=== PATIENT | female | born 1970 | race Caucasian/White ===

== ENCOUNTER 2018-03-02 18:06 | Emergency (ER) | payer BC ==
[2018-03-02] MEDS ORDERED: Ondansetron INJ* 2 MG/ML VIAL IV ONE (18:42)
[2018-03-02] MEDS ORDERED: NS 0.9% 1000 ML* 1,000 ML IV ONE (18:42)
[2018-03-02 19:07] LABS: ABS Basophils 0 10^3/ul (0-0.2); ABS Eosinophils 0.8 10^3/ul (0-0.6); ABS Lymphocytes 1.4 10^3/ul (1.0-4.8); ABS Monocytes 0.6 10^3/ul (0-0.8); ABS Neutrophils 10.3 10^3/ul (1.5-7.7); ABS Nucleated RBC 0 10^3/ul; Eosinophil % 5.8 % (0-6); Hematocrit 38 % (35-47); Hemoglobin 12.8 g/dl (12.0-16.0); Lymphocyte % 10.5 % (25-47); Mean Corpuscular HGB Conc 34 g/dl (31-36); Mean Corpuscular Hemoglobin 30 pg (27-31); Mean Corpuscular Volume 89 fL (80-97); Mean Platelet Volume 8.9 um3 (7.4-10.4); Nucleated Red Blood Cells % 0; Platelet Count 253 10^3/ul (150-450); Red Cell Distribution Width 13 % (10.5-15)
[2018-03-02 19:33] LABS: EGFR Non-African American 90.5 (>60)
[2018-03-02 19:47] VITALS: BP 89/48
[2018-03-02 19:51] LABS: Urine Appearance Clear; Urine Blood 1+ (Negative); Urine Color Yellow; Urine Ketones 2+ (Negative); Urine Protein Negative (Negative); Urine Specific Gravity 1.021 (1.010-1.030); Urine Urobilinogen Negative (Negative)
--- NOTE | 2018-03-02 23:14 | ED ---
Abdominal Pain/Female - HPI Summary HPI Summary: Pt. is a 47 y.o female who presents to the ER for vomiting and diarrhea. Pt. states she has had mild abdominal pain, nausea and diarrhea over the last 3-4 days. Today pt. developed severe abdominal cramping, vomiting and diarrhea shortly after eating "bad" peanut butter. Pt. call EMS and was brought to the ER. Currently in the ER pt. states she is feeling much better. She has no past medical history. Symptoms are moderate in severity. Pt. notes that she feels her symptoms have been exacerbated after eating nuts and dairy. - History of Current Complaint Chief Complaint: EDNauseaVomitDiarrh Stated Complaint: POSS. GI ILLNESS Time Seen by Provider: 03/02/18 18:42 Hx Obtained From: Patient ?: No Onset/Duration: Sudden Onset Timing: Intermittent Episode Lasting Severity Initially: Severe Severity Currently: Mild Pain Intensity: 0 Location: Diffuse Radiates: No Character: Cramping Aggravating Factor(s): Food Alleviating Factor(s): Nothing Associated Signs and Symptoms: Positive: Nausea, Vomiting, Diarrhea. Negative: Fever, Cough, Chest Pain, Blood in Stool Allergies/Adverse Reactions: Allergies Allergy/AdvReac Type Severity Reaction Status Date / Time Sulfa (Sulfonamide Allergy Itching Verified 03/02/18 18:27 Antibiotics) aspirin AdvReac Vomiting Verified 03/02/18 18:27 vaccinations Allergy Hives Uncoded 03/02/18 18:29 Home Medications: Home Medications Norgestimate-Ethinyl Estradiol [Tri-Sprintec Tablet] 1 tab PO DAILY 03/02/18 [ History Confirmed 03/02/18] PMH/Surg Hx/FS Hx/Imm Hx Previously Healthy: Yes Infectious Disease History: No Infectious Disease History: Denies: Traveled Outside the [place] in Last 30 Days - Social History Occupation: Employed Full-time Lives: With Family Alcohol Use: Rare Substance Use Type: Reports: None Smoking Status (MU): Never Smoked Tobacco Review of Systems Constitutional: Negative Negative: Fever, Chills Eyes: Negative ENT: Negative Negative: Palpitations, Chest Pain Negative: Shortness Of Breath, Cough Positive: Abdominal Pain, Vomiting, Diarrhea, Nausea Genitourinary: Negative Positive: burning, dysuria, frequency Neurological: Negative Psychological: Normal All Other Systems Reviewed And Are Negative: Yes Physical Exam Triage Information Reviewed: Yes Vital Signs On Initial Exam: Initial Vitals Temp Pulse Resp BP Pulse Ox 98.3 F 76 14 89/48 100 03/02/18 18:22 03/02/18 18:22 03/02/18 18:22 03/02/18 18:22 03/02/18 18:22 Vital Signs Reviewed: Yes Appearance: Positive: Well-Appearing Skin: Positive: Warm, Dry Head/Face: Positive: Normal Head/Face Inspection Eyes: Positive: Normal Respiratory/Lung Sounds: Positive: Clear to Auscultation, Breath Sounds Present Cardiovascular: Positive: Normal, RRR Abdomen Description: Positive: Soft, Other: - Abd. is soft and nontender throughout. No rebound tenderness or guarding Neurological: Positive: Normal, CN Intact II-III Psychiatric: Positive: Normal Diagnostics - Vital Signs Vital Signs Temp Pulse Resp BP Pulse Ox 03/02/18 18:22 98.3 F 76 14 89/48 100 - Laboratory Lab Results: Lab Results 03/02/18 03/02/18 03/02/18 Range/Units 18:55 18:55 19:36 WBC 13.0 H (3.5-10.8) 10^3/ul RBC 4.20 (4.0-5.4) 10^6/ul Hgb 12.8 (12.0-16.0) g/dl Hct 38 (35-47) % MCV 89 (80-97) fL MCH 30 (27-31) pg MCHC 34 (31-36) g/dl RDW 13 (10.5-15) % Plt Count 253 (150-450) 10^3/ul MPV 8.9 (7.4-10.4) um3 Neut % (Auto) 78.8 (38-83) % Lymph % (Auto) 10.5 L (25-47) % [place] % (Auto) 4.7 (0-7) % Eos % (Auto) 5.8 (0-6) % Baso % (Auto) 0.2 (0-2) % Absolute Neuts (auto) 10.3 H (1.5-7.7) 10^3/ul Absolute Lymphs (auto) 1.4 (1.0-4.8) 10^3/ul Absolute Monos (auto) 0.6 (0-0.8) 10^3/ul Absolute Eos (auto) 0.8 H (0-0.6) 10^3/ul Absolute Basos (auto) 0 (0-0.2) 10^3/ul Absolute Nucleated RBC 0 10^3/ul Nucleated RBC % 0 Sodium 137 L (139-145) mmol/L Potassium 4.3 (3.5-5.0) mmol/L Chloride 103 (101-111) mmol/L Carbon Dioxide 24 (22-32) mmol/L Anion Gap 10 (2-11) mmol/L BUN 14 (6-24) mg/dL Creatinine 0.70 (0.51-0.95) mg/dL Est GFR ( Amer) 116.4 (>60) Est GFR (Non-Af Amer) 90.5 (>60) BUN/Creatinine Ratio 20.0 (8-20) Glucose 87 (70-100) mg/dL Calcium 8.9 (8.6-10.3) mg/dL Total Bilirubin 0.50 (0.2-1.0) mg/dL AST 14 (13-39) U/L ALT 8 (7-52) U/L Alkaline Phosphatase 31 L (34-104) U/L Total Protein 6.8 (6.4-8.9) g/dL Albumin 3.9 (3.2-5.2) g/dL Globulin 2.9 (2-4) g/dL Albumin/Globulin Ratio 1.3 (1-3) Lipase 2673 H (11.0-82.0) U/L Beta HCG, Quant < 0.60 mIU/mL Urine Color Yellow Urine Appearance Clear Urine pH 8.0 (5-9) Ur Specific [place] 1.021 (1.010-1.030) Urine Protein Negative (Negative) Urine Ketones 2+ A (Negative) Urine Blood 1+ A (Negative) Urine Nitrate Negative (Negative) Urine Bilirubin Negative (Negative) Urine Urobilinogen Negative (Negative) Ur Leukocyte Esterase Negative (Negative) Urine WBC (Auto) Absent (Absent) Urine RBC (Auto) Trace(0-2/hpf) (Absent) Ur Squamous Epith Cells Present A (Absent) Amorphous Crystals Present A (Absent) Urine Bacteria Absent (Absent) Urine Glucose Negative (Negative) Result Diagrams: 03/02/18 18:55 03/02/18 18:55 Lab Statement: Any lab studies that have been ordered have been reviewed, and results considered in the medical decision making process. Abdominal Pain Fem Course/Dx - Course Course Of Treatment: Pt. presenting with abd. pain, vomiting and diarrhea. She is afebrile. BP is low at 89/48. EMT made 3 attempts at an IV without success. Advised pt. she will need IV for fluids given hypotension, pt. states she does not want to try at another IV. Pt. states she is feeling a lot better and would like to try PO fluids. She did allow for labs. CBC shows a leukocytosis of 13. Lipase is elevated at 1500. CMP is otherwise unremarkable. U/A shows ketones but negative for infection. Negative prenancy. On re-exam pt. is sitting up in bed and has drank a cup of water. She has had no vomiting or diarrhea in the ER. Results were discussed. Advised pt. she will need to be admitted for hydration and further testing of pancreatitis. Pt. states she is feeling so much better and would like to try to go home. Advised pt. it is important to obtain abd. CT and GB u/s to evaluate for cholecystitis. Explained to pt. if she goes home her condition can worsen and lead to sepsis or end organ failure and . Pt. is competent to make her own decisions. She states understandment and wishes to sign out AMA. Strongly advised to see her PCP tomorrow and return to ER [facility]. - Diagnoses Differential Diagnosis: Positive: Appendicitis, Diverticulitis, Ectopic , Pancreatitis, , Urinary Tract Infection, Other - gastroenteritis Provider Diagnoses: Pancreatitis Discharge - Sign-Out/Discharge Documenting (check all that apply): Discharge - Discharge Plan Condition: Stable Disposition: AGAINST MEDICAL ADVICE Patient Education Materials: Pancreatitis (ED) Referrals: No Primary Care Phys,NOPCP [Primary Care Provider] - - Billing Disposition and Condition Condition: STABLE Disposition: AMA
== END 2018-03-02 21:15 | disposition left against medical advice (07) ==
LOC: ED 18:06
DX: K85.90 Acute pancreatitis without necrosis or infection, unspecified (principal); R11.2 Nausea with vomiting, unspecified; R19.7 Diarrhea, unspecified; R30.0 Dysuria; R35.0 Frequency of micturition; Z32.02 Encounter for pregnancy test, result negative; Z88.6 Allergy status to analgesic agent; Z88.2 Allergy status to sulfonamides; Z88.7 Allergy status to serum and vaccine
CPT/HCPCS: 36415; 80053; 81003; 81015; 83690; 84702; 85025; 99282